=== PATIENT | female | born 2000 | race Caucasian/White ===

== ENCOUNTER 2022-05-16 05:57 | Emergency (ER) | payer OTHER, SELFPAY ==
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
[2022-05-16 06:12] VITALS: BP 132/94; BP 133/76; PULSE 107; PULSE 127; RESP 16; TEMP 37.2; O2SAT 98; O2SAT 99; BMI 28.3
[2022-05-16 07:30] VITALS: BP 118/62; PULSE 112; RESP 18; TEMP 37.1; O2SAT 97
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
[2022-05-16] MEDS: Acetaminophen 325 MG TABLET 975 MG PO (08:25)
[2022-05-16] MEDS: Ketorolac Tromethamine 15 MG/ML VIAL IM (08:25)
[2022-05-16 11:29] VITALS: BP 111/66; PULSE 98; RESP 16; O2SAT 99
== END 2022-05-16 11:33 | disposition home or self-care (01) ==
PROVIDERS: Emergency Provider Student in an Organized Health Care Education/Training Program
DX: S92.154A Nondisplaced avulsion fracture (chip fracture) of right talus, initial encounter for closed fracture (principal); S93.401A Sprain of unspecified ligament of right ankle, initial encounter; V47.5XXA Car driver injured in collision with fixed or stationary object in traffic accident, initial encounter; Y93.89 Activity, other specified; Y92.411 Interstate highway as the place of occurrence of the external cause; Y99.9 Unspecified external cause status
CPT/HCPCS: 73590; 73600; 73620; 96372; 99284; J1885

== ENCOUNTER 2022-05-28 07:54 | Outpatient (REF) | payer OTHER, SELFPAY ==
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
== END 2022-05-28 07:55 | disposition home or self-care (01) ==
LOC: HO.HOSX 07:54
PROVIDERS: Visit Provider Physician Assistant
DX: M25.571 Pain in right ankle and joints of right foot (principal)
CPT/HCPCS: 73610

== ENCOUNTER 2022-06-26 12:45 | Outpatient (REF) | payer OTHER, SELFPAY ==
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
== END 2022-06-26 12:46 | disposition home or self-care (01) ==
LOC: HO.HOSX 12:45
PROVIDERS: Visit Provider Physician Assistant
DX: S82.51XD Displaced fracture of medial malleolus of right tibia, subsequent encounter for closed fracture with routine healing (principal)
CPT/HCPCS: 73610; 99212

== ENCOUNTER 2022-08-07 | Outpatient (REF) | payer OTHER, SELFPAY ==
--- NOTE | ~2022-08-07 | XR_ITS ---
EXAMINATION: XR ANKLE, RIGHT CLINICAL INFORMATION: Ankle pain COMPARISON: 06/26/2022 TECHNIQUE: AP, lateral, and mortise views of the right ankle. XR/XR ankle RT min 3V FINDINGS/IMPRESSION: Again seen is nonspecific cortical disruption of the medial aspect of the talus. This may reflect posttraumatic injury, although an intraosseous lesion cannot be excluded. Recommend further evaluation with MRI.
== END 2022-08-07 00:01 | disposition home or self-care (01) ==
LOC: HO.HOSX
PROVIDERS: Visit Provider Physician Assistant
DX: S82.51XD Displaced fracture of medial malleolus of right tibia, subsequent encounter for closed fracture with routine healing (principal); V89.2XXD Person injured in unspecified motor-vehicle accident, traffic, subsequent encounter
CPT/HCPCS: 73610; 99212

== ENCOUNTER 2022-08-10 15:00 | Outpatient (RCR) | payer OTHER, SELFPAY ==
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
--- NOTE | 2022-08-25 13:53 | MHC.PT.DC ---
[facility] [place] Office [place] [facility] [place] Office [address] Madelin Mock [address] [phone] F: [phone] F: [phone] F: [phone] F: [phone] Physical Therapy Discharge Report Diagnosis: Displaced fracture of medial malleolus of right tibia Date of Surgery: N/A Date of Evaluation: 07/20/22 Date of Discharge: 08/25/22 Treatments to Date: 5 Cancellations to Date: 1 No Shows to Date: 3 Discharge Status: Visit Non-compliance Discharge Summary: Pt was seen for PT from 07/20/22-08/10/22. Pt last attended appointment was 08/10/22. She has had 3 no-show appointments since SOC, including 2 no-shows for her last 2 scheduled appointments. Pt is being D/C from skilled PT per [facility] attendance policy and visit non-compliance. Pt current level of function unknown at this time. Electronically signed by: Myrna Oliver, PT, DPT Please sign and return to therapist. Thank you for your referral.
== END 2022-08-25 13:53 | disposition home or self-care (01) ==
LOC: HO.PT 15:00
PROVIDERS: Visit Provider Physician Assistant
DX: S82.51XD Displaced fracture of medial malleolus of right tibia, subsequent encounter for closed fracture with routine healing (principal)
CPT/HCPCS: 97110; 97112; 97140; 97162

== ENCOUNTER 2023-10-20 12:22 | Outpatient (AMB) | payer OTHER, SELFPAY ==
--- NOTE | 2023-10-20 12:56 | A.OFFVIS_ITS ---
Intake Vital Signs 10/20/23 13:04 Height 5 ft 3 in Weight 165 lb 5.547 oz BMI 29.3 BP 110/57 L Blood Pressure Location Rt brachial Position Sitting Pulse 85 Intake Visit Reasons: Dyspepsia Intake Note: Patient presents to in office visit today as a new patient for dyspepsia. CC:Patient c/o abdominal bloating, abdominal discomfort, bowel urgency after eating from fast food restaurant, constipation, and occasional loose stools. Ons et of symptoms about a year ago per PT. Allergies No Known Allergies [No Known Allergies*] Allergy (Verified 10/20/23 13:07) HPI Dyspepsia HPI Details 23-year-old female here for initial eval uation of dyspepsia. She is referred by Tony Robles MD the of [facility]. PMX Asthma Acne Allergic rhinitis Eczema * SURGICAL HISTORY Tubal ligation * ALLERGIES: NKDA * [employer] LABS: none in our system TODAY'S VISIT Onset last year she started having a great deal of bloating. She is always feeling CIC, but garlic and fatty foods generally will move her bowels. The bloating is of the sudden onset, but she has always had CIC. The bloating is mostly midline in the upper abd adn she is having a lot of acid feeling in my stomach. This is worse with speghetti sauce, butter as a main ingredient. She can not ID any medication changes, health problems or diet changes preceding this. THere has been no testing done to address this yet. Her father also sees me for a lot of stomach problems. She has used Miralax w/o good effect. She has used colon cleanse pills from [employer] in the past with good effect. We looked up this medicine and it contains largely senna with some cascara but it cost her 30 dollars a month so we probably respond well to senna as a monotherapy. We can start here and then titrate to affect her side effect. There is no known family history of gallbladder disease but I think getting an ultrasound to check this out would be prudent particularly given her reports of trouble with fatty foods, I also think an H pylori breath test would be in order. Since we do not have any general blood work I am going to get a CBC and Chem panel. She is also reporting that she has been gaining weight that she can not seem to lose, having some dry skin and losing some hair so thyroid studies along with her constipation would also be a good idea. THERE IS A STRONG FAMILY HISTORY of thyroid disease in her mother and her sister. I am going to get some basic lab work including a thyroid since she is complaining of hair falling out and skin dryness, and an ultrasound of the abdomen to see if there is any reason to suspect gallbladder disease. Will also get an H pylori breath test see if we should consider an EGD depending on her response to starting senna etc.. Return office visit in 4-6 weeks. 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 Review of Systems Const Reports fatigue, Denies fever(s), Denies night sweats, Denies poor appetite and Denies weight loss ENT Reports Normal hearing present, Denies dental pain, Denies dysphagia, Denies hearing loss, Denies mouth pain, Denies odynophagia, Denies throat swelling, Denies tongue swelling and Reports other (Dentition adequate) Card Reports no additional complaints Resp Reports no additional complaints GI Denies abdominal pain, Denies melena, Reports bloating, Denies hematochezia, Reports constipation, Denies GI cramping, Denies dysphagia, Denies excessive flatus, Denies early satiety, Reports dyspepsia, Reports heartburn, Denies diarrhea, Denies nausea, Denies odynophagia, Denies vomiting and Denies hematemesis Skin/Breast Reports dry skin, Reports alopecia, Denies pruritus, Denies lesions, Denies rash and Denies jaundice Neuro Reports Normal hearing present and Denies Abnormal speech present Endo Reports fatigue Aller/Immun Denies throat swelling and Denies tongue swelling Physical Exam Vital Signs: Last Vital Signs Pulse 85 10/20/23 13:04 BP 110/57 L 10/20/23 13:04 BMI result Body Mass Index 29.3 Const General: cooperative, no acute distress, well developed and well groomed Nutritional Appearance: well nourished and overweight Orientation/consciousness: oriented to person, oriented to place and oriented to time Limitations: No language barrier HEENT Head: Yes normocephalic and Yes atraumatic Eyes General: appearance normal, both eyes and all related structures Pupils: Equal, round and reactive pupils present Neck Neck: Yes no lymphadenopathy Thyroid: diffusely enlarged (? Mild goiter versus short neck) Resp Effort & Inspection: normal respiratory effort and able to speak in complete sentences Auscultation: clear to auscultation bilaterally Cardio Rate: regular rate Rhythm: regular rhythm Heart sounds: Normal, physiologic split S2 sound present Peripheral pulses: radial pulses present and posterior tibial pulses present GI Inspection: No distended, Yes Abdominal panniculus present, Yes obesity and Yes striae Palpation (GI): Soft to palpation, Tenderness to palpation present (GI) in the epigastrum, in the LUQ and Valdez's sign positive; with no rebound tenderness, Guarding due to palpation present (GI), not rigid and No hepatosplenomegaly present Percussion: Yes normal to percussion Auscultation: normal bowel sounds Rectal Exam - Female: deferred Skin General skin exam: no rashes or lesions noted, turgor normal, skin not dry, no jaundice, No spider nevi and no striae Rashes: no rashes Nails: normal Neuro General: oriented to person, oriented to place and oriented to time Cranial nerves: Yes Equal, round and reactive pupils present and Yes Normal hearing present Speech: No Abnormal speech present Extrem General: Yes normal to inspection, No clubbing, No cyanosis and No edema Psych Appearance: grossly normal and well kempt Mental Status: mental status grossly normal Speech and movement: Normal speech and movement present Affect: normal affect Attitude: cooperative Thought process: Normal thought process present and not confabulating Thought content: Normal thought content present Insight: Limited insight present (Psych) Judgement: Limited judgement present (Psych) Assessment & Plan Assessment & Plan (1) Constipation: Code(s): K59.00 - Constipation, unspecified (2) Weight gain: Code(s): R63.5 - Abnormal weight gain (3) Hair loss: Code(s): L65.9 - Nonscarring hair loss, unspecified (4) Upper abdominal pain: Comment: really more bloating Code(s): R10.10 - Upper abdominal pain, unspecified Plan Onset last year she started having a great deal of bloating. She is always feeling CIC, but garlic and fatty foods generally will move her bowels. The bloating is of the sudden onset, but she has always had CIC. The bloating is mostly midline in the upper abd adn she is having a lot of acid feeling in my stomach. This is worse with speghetti sauce, butter as a main ingredient. She can not ID any medication changes, health problems or diet changes preceding this. THere has been no testing done to address this yet. Her father also sees me for a lot of stomach problems. She has used Miralax w/o good effect. She has used colon cleanse pills from [employer] in the past with good effect. We looked up this medicine and it contains largely senna with some cascara but it cost her 30 dollars a month so we probably respond well to senna as a monotherapy. We can start here and then titrate to affect her side effect. There is no known family history of gallbladder disease but I think getting an ultrasound to check this out would be prudent particularly given her reports of trouble with fatty foods, I also think an H pylori breath test would be in order. Since we do not have any general blood work I am going to get a CBC and Chem panel. She is also reporting that she has been gaining weight that she can not seem to lose, having some dry skin and losing some hair so thyroid studies along with her constipation would also be a good idea. THERE IS A STRONG FAMILY HISTORY of thyroid disease in her mother and her sister. I am going to get some basic lab work including a thyroid since she is complaining of hair falling out and skin dryness, and an ultrasound of the abdomen to see if there is any reason to suspect gallbladder disease. Will also get an H pylori breath test see if we should consider an EGD depending on her response to starting senna etc.. Return office visit in 4-6 weeks. Orders: Orders Comprehensive Met. Panel 10/21/23 K59.00 - Constipation, unspecified, R63.5 - Abnormal weight gain, L65.9 - Nonscarring hair loss, unspecified Complete Blood Count Auto Diff 10/21/23 K59.00 - Constipation, unspecified, R63.5 - Abnormal weight gain, L65.9 - Nonscarring hair loss, unspecified H Pylori Breath Test 10/21/23 K59.00 - Constipation, unspecified, R63.5 - Abnormal weight gain, L65.9 - Nonscarring hair loss, unspecified TSH reflex Free T4 10/21/23 K59.00 - Constipation, unspecified, R63.5 - Abnormal weight gain, L65.9 - Nonscarring hair loss, unspecified US abdomen complete 10/20/23 R10.10 - Upper abdominal pain, unspecified Medications: New sennosides (Senna Laxative) 17.2 mg (2 x 8.6 mg) PO BEDTIME 60 tabs 6RF K59.00 - Constipation, unspecified docusate sodium (Colace) 100 mg PO .DAILY WITH FOOD 60 caps 6RF 30 days K59.00 - Constipation, unspecified Coding Level of Care Code New Pt Level 3 (91872) Diagnoses Constipation K59.00 Weight gain R63.5 Hair loss L65.9 Upper abdominal pain R10.10
[2023-10-20 13:04] VITALS: BP 110/57; PULSE 85; BMI 29.3
== END 2023-10-20 14:19 | disposition home or self-care (01) ==
PROVIDERS: Visit Provider Nurse Practitioner
DX: K59.00 Constipation, unspecified (principal); R63.5 Abnormal weight gain; L65.9 Nonscarring hair loss, unspecified; R10.10 Upper abdominal pain, unspecified
CPT/HCPCS: 99203

== ENCOUNTER 2023-10-20 12:22 | Outpatient (REF) | payer OTHER, SELFPAY ==
[2023-10-21 16:53] LABS: H Pylori Breath Test Positive (Negative)
== END 2023-10-20 12:23 | disposition home or self-care (01) ==
LOC: HO.LNP 12:22
PROVIDERS: Visit Provider Nurse Practitioner
DX: K59.00 Constipation, unspecified (principal); R63.5 Abnormal weight gain; R10.13 Epigastric pain; L65.9 Nonscarring hair loss, unspecified
CPT/HCPCS: 83013; 99202

== ENCOUNTER 2023-10-21 09:09 | Outpatient (REF) | payer OTHER, SELFPAY | END 2023-10-21 09:10 | disposition home or self-care (01) | LOC: HO.LAB 09:09 | PROVIDERS: Visit Provider Nurse Practitioner | DX: K59.00 Constipation, unspecified (principal); R63.5 Abnormal weight gain; L65.9 Nonscarring hair loss, unspecified | CPT/HCPCS: 36415; 80053; 84443; 85025 ==

== ENCOUNTER 2023-12-07 09:43 | Outpatient (REF) | payer OTHER, SELFPAY ==
[2023-12-08 12:11] LABS: H Pylori Breath Test Positive (Negative)
== END 2023-12-07 09:44 | disposition home or self-care (01) ==
LOC: HO.LNP 09:43
PROVIDERS: Visit Provider Nurse Practitioner
DX: Z11.0 Encounter for screening for intestinal infectious diseases (principal)
CPT/HCPCS: 83013

== ENCOUNTER 2023-12-30 09:52 | Outpatient (AMB) | payer OTHER, SELFPAY ==
--- NOTE | 2023-12-30 10:02 | A.OFFVIS_ITS ---
Intake Vital Signs 12/30/23 10:12 Height 5 ft 3 in Weight 163 lb 2.273 oz BMI 28.9 BP 104/58 L Blood Pressure Location Lt brachial Position Sitting Pulse 92 Intake Visit Reasons: Follow up labs Intake Note: Patient presents in office today in follow up labs. CC: Patient states she continues feeling the same, she still having abdominal bloating, abdominal discomfort, bowel urgency after eating from fast food restaurant. Allergies amoxicillin Allergy (Mild, Verified 12/30/23 10:17) Rash HPI Follow up labs HPI Details Assessment & Plan (1) Constipation: Code(s): K59.00 - Constipation, unspecified (2) Weight gain: Code(s): R63.5 - Abnormal weight gain (3) Hair loss: Code(s): L65.9 - Nonscarring hair loss, unspecified (4) Upper abdominal pain: Comment: really more bloating Code(s): R10.10 - Upper abdominal pain, unspecified Plan Onset last year she started having a great deal of bloating. She is always feeling CIC, but garlic and fatty foods generally will move her bowels. The bloating is of the sudden onset, but she has always had CIC. The bloating is mostly midline in the upper abd adn she is having a lot of acid feeling in my stomach. This is worse with spaghetti sauce, butter as a main ingredient. She can not ID any medication changes, health problems or diet changes preceding this. There has been no testing done to address this yet. Her father also sees me for a lot of stomach problems. She has used Miralax w/o good effect. She has used colon cleanse pills from [employer] in the past with good effect. We looked up this medicine and it contains largely senna with some cascara but it cost her 30 dollars a month so we probably respond well to senna as a monotherapy. We can start here and then titrate to affect her side effect. There is no known family history of gallbladder disease but I think getting an ultrasound to check this out would be prudent particularly given her reports of trouble with fatty foods, I also think an H pylori breath test would be in order. Since we do not have any general blood work I am going to get a CBC and Chem panel. She is also reporting that she has been gaining weight that she can not seem to lose, having some dry skin and losing some hair so thyroid studies along with her constipation would also be a good idea. THERE IS A STRONG FAMILY HISTORY of thyroid disease in her mother and her sister. I am going to get some basic lab work including a thyroid since she is complaining of hair falling out and skin dryness, and an ultrasound of the abdomen to see if there is any reason to suspect gallbladder disease. Will also get an H pylori breath test see if we should consider an EGD depending on her response to starting senna etc.. Return office visit in 4-6 weeks. Orders: Orders Comprehensive Met. Panel 10/21/23 K59.00 - Constipat ion, unspecified, R63.5 - Abnormal w eight gain, L65.9 - Nonscarring hair loss, unspecified Complete Blood Cou nt Auto Diff 10/21/23 K59.00 - Constipat ion, unspecified, R63.5 - Abnormal w eight gain, L65.9 - Nonscarring hair loss, unspecified H Pylori Breath Te st 10/21/23 K59.00 - Constipat ion, unspecified, R63.5 - Abnormal w eight gain, L65.9 - Nonscarring hair loss, unspecified TSH reflex Free T4 10/21/23 K59.00 - Constipat ion, unspecified, R63.5 - Abnormal w eight gain, L65.9 - Nonscarring hair loss, unspecified US abdomen complet e 10/20/23 R10.10 - Upper abd ominal pain, unspe cified Medications: New sennosides (Senna Laxative) 17.2 mg (2 x 8.6 m g) PO BEDTIME 60 t abs 6RF K59.00 - Constipat ion, unspecified docusate sodium (C olace) 100 mg PO .DAILY W ITH FOOD 60 caps 6 RF 30 days K59.00 - Constipat ion, unspecified LABS: Laboratory Tests 10/21/23 12/07/23 09:20 10:20 WBC 7.3 Hgb 12.0 Hct 39.7 MCV 75.8 L MCH 22.9 L Plt Count 212 Estimated GFR > 60 Total Bilirubin 0.3 AST 12 ALT 10 Alkaline Phosphata se 78 TSH 0.40 H. pylori Breath T est Positive ULTRASOUND OF THE ABDOMEN CORRESPONDENCE On 10/22/23 @ 13:20 Megan Parada Wrote To Gastro Nurses Megan Parada completed item. On 10/22/23 @ 13:20 Megan Parada Wrote To Gastro Nurses telephone call placed to patient to inform of positive H Pylori infection. patient informed this could be the cause of her upper abdominal symptoms. patient advised that it is important she complete full course of treatment as bacteria can be hard to eradicate. patient informed that Amoxicillin and Levaquin were sent, as well as Omeprazole for her to take BID. patient advised that she needs to purchase OTC probiotic supplement to prevent diarrhea and corona. patient scheduled for f/u in 6 weeks to re test. Megan Parada removed from item. On 10/22/23 @ 12:11 Karen Truong Wrote To Megan Parada (2) Please call the patient advised her she is an H pylori infection. This probably causing lot of her upper abdomen symptoms. Educate her about H pylori the i mportance of completing the regimen since there are lot of resistant organisms out there. I am treating her with amoxicillin Levaquin so she only needs to buy an [id number] probiotic supplement while she is on the antibiotics to prevent diarrhea and Corona infections. We do not need to avoid alcohol with this regimen. Please reschedule her out to 6 weeks from today or tomorrow so that will be able to appropriately retest her for a eradication. TODAY'S VISIT She had a rash from the amoxicillin, presented to the ER and it was stopped, will change to doxy/flagyl. Unfortunately her symptoms are no better. This is likely because the H pylori repeated breath test was still positive. She did better with the doxy/Flagyl regimen when she took the amoxicillin she broke out in hives from head to toe and had a great deal of itching. Obviously this limits us since we can not use anything involving the amoxicillin regimen unless we send her to an automatic casting machine operator and have her desensitized. For now we are going to try a course with rifabutin and Flagyl. She is advised to take a probiotic and I am going to also try prescribing Gas-X but she may need to buy this [id number]. This is to try to address the bloating although I suspect a large amount of this is due the H pylori. She received the senna and this is moving her bowels just as well as her [employer] purchase that was senna and cascara did. Return office visit in 7 weeks around February 09 she will be scheduled for an H pylori breath test and she is aware to stop the omeprazole prior to the test. 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 Review of Systems Const Denies fatigue, Denies fever(s), Denies night sweats, Denies poor appetite and Denies weight loss ENT Reports Normal hearing present, Denies dental pain, Denies dysphagia, Denies hearing loss, Denies mouth pain, Denies odynophagia, Denies throat swelling, D enies tongue swelling and Reports other (Dentition adequate) Card Reports no additional complaints Resp Reports no additional complaints GI Details: Reports abdominal pain, Denies melena, Reports bloating, Denies hematochezia, Denies constipation, Denies GI cramping, Denies dysphagia, Denies excessive flatus, Denies early satiety, Reports dyspepsia, Reports heartburn, Denies diarrhea, Denies nausea, Denies odynophagia, Denies vomiting and Denies hematemesis Skin/Breast Denies pruritus, Denies lesions, Denies rash and Denies jaundice Neuro Reports Normal hearing present and Denies Abnormal speech present Endo Denies fatigue Aller/Immun Denies throat swelling and Denies tongue swelling Physical Exam Vital Signs: Last Vital Signs Pulse 92 12/30/23 10:12 BP 104/58 L 12/30/23 10:12 BMI result Body Mass Index 28.9 Const General: cooperative, no acute distress, well developed and well groomed Nutritional Appearance: average body habitus and well nourished Orientation/consciousness: oriented to person, oriented to place and oriented to time Limitations: No language barrier HEENT Head: Yes normocephalic and Yes atraumatic Eyes General: appearance normal, both eyes and all related structures Pupils: Equal, round and reactive pupils present Neck Neck: Yes normal visual inspection and Yes no lymphadenopathy Thyroid: Thyroid normal Resp Effort & Inspection: normal respiratory effort and able to speak in complete sentences Auscultation: clear to auscultation bilaterally Cardio Rate: regular rate Rhythm: regular rhythm Heart sounds: Normal, physiologic split S2 sound present Peripheral pulses: radial pulses present and posterior tibial pulses present GI Inspection: No distended and No Abdominal panniculus present Palpation (GI): Soft to palpation, nontender, no guarding, not rigid and No hepatosplenomegaly present Percussion: Yes normal to percussion Auscultation: normal bowel sounds Rectal Exam - Female: deferred Skin General skin exam: no rashes or lesions noted, turgor normal, skin not dry, no jaundice, No spider nevi and no striae Rashes: no rashes Nails: normal Neuro General: oriented to person, oriented to place and oriented to time Cranial nerves: Yes Equal, round and reactive pupils present and Yes Normal hearing present Speech: No Abnormal speech present Extrem General: Yes normal to inspection, No clubbing, No cyanosis and No edema Psych Appearance: grossly normal and well kempt Mental Status: mental status grossly normal Speech and movement: Normal speech and movement present Affect: normal affect Attitude: cooperative Thought process: Normal thought process present and not confabulating Thought content: Normal thought content present Insight: Fair insight present (Psych) Judgement: Fair judgement present (Psych) Results Reviewed Results Reviewed: Laboratory Tests 10/21/23 12/07/23 09:20 10:20 WBC 7.3 Hgb 12.0 Hct 39.7 MCV 75.8 L MCH 22.9 L Plt Count 212 Estimated GFR > 60 Total Bilirubin 0.3 AST 12 ALT 10 Alkaline Phosphatase 78 TSH 0.40 H. pylori Breath Test Positive Assessment & Plan Assessment & Plan (1) H. pylori infection: Code(s): A04.8 - Other specified bacterial intestinal infections (2) Upper abdominal pain: Comment: really more bloating Code(s): R10.10 - Upper abdominal pain, unspecified Plan She had a rash from the amoxicillin, presented to the ER and it was stopped, will change to doxy/flagyl. Unfortunately her symptoms are no better. This is likely because the H pylori repeated breath test was still positive. She did better with the doxy/Flagyl regimen when she took the amoxicillin she broke out in hives from head to toe and had a great deal of itching. Obviously this limits us since we can not use anything involving the amoxicillin regimen unless we send her to an automatic casting machine operator and have her desensitized. For now we are going to try a course with rifabutin and Flagyl. She is advised to take a probiotic and I am going to also try prescribing Gas-X but she may need to buy this [id number]. This is to try to address the bloating although I suspect a large amount of this is due the H pylori. She received the [employer] and this is moving her bowels just as well as her [employer] purchase that was [employer] and [employer] did. Return office visit in 7 weeks around February 09 she will be scheduled for an H pylori breath test and she is aware to stop the omeprazole prior to the test. Orders: Orders H Pylori Breath Test 02/10/24 Medications: New metronidazole 1,000 mg (2 x 500 mg) PO BID 14 days 56 tabs 0RF rifabutin 300 mg (2 x 150 mg) PO DAILY 14 days 28 caps 0RF A04.8 - Other specified bacterial intestinal infections, R10.10 - Upper abdominal pain, unspecified simethicone after meals 180 mg PO QID 30 days 120 caps 3RF Changed From omeprazole 20 mg PO BID 14 days 28 caps 0RF A04.8 - Other specified bacterial intestinal infections To omeprazole 20 mg PO BID 28 days 56 caps 0RF A04.8 - Other specified bacterial intestinal infections Coding Level of Care Code Est Pt Level 3 (25863) Diagnoses H. pylori infection A04.8 Upper abdominal pain R10.10
[2023-12-30 10:12] VITALS: BP 104/58; PULSE 92; BMI 28.9
== END 2023-12-30 10:39 | disposition home or self-care (01) ==
PROVIDERS: Visit Provider Nurse Practitioner
DX: A04.8 Other specified bacterial intestinal infections (principal); R10.10 Upper abdominal pain, unspecified
CPT/HCPCS: 99213

== ENCOUNTER → 2023-12-30 09:52 | Outpatient (BNVA) | payer OTHER, SELFPAY | PROVIDERS: Visit Provider Nurse Practitioner | DX: A04.8 Other specified bacterial intestinal infections (principal); R14.0 Abdominal distension (gaseous) | CPT/HCPCS: 99212 ==

== ENCOUNTER 2024-03-24 08:44 | Outpatient (REF) | payer OTHER, SELFPAY ==
[2024-03-30 15:10] LABS: H Pylori Breath Test Positive (Negative)
== END 2024-03-24 08:45 | disposition home or self-care (01) ==
LOC: HO.LNP 08:44
PROVIDERS: Visit Provider Nurse Practitioner
DX: A04.8 Other specified bacterial intestinal infections (principal); R19.5 Other fecal abnormalities; R10.10 Upper abdominal pain, unspecified
CPT/HCPCS: 83013

== ENCOUNTER 2024-03-24 09:57 | Outpatient (AMB) | payer OTHER, SELFPAY ==
[2024-03-24 10:13] VITALS: BP 123/73; PULSE 90; BMI 28.6
--- NOTE | 2024-03-24 10:13 | MHC.OFFVIS ---
Vital Signs 03/24/24 10:13 Height 5 ft 3 in Weight 161 lb 6.054 oz BMI 28.6 BP 123/73 Blood Pressure Location Lt brachial Position Sitting Pulse 90 Intake Visit Reasons: follow up h pylori Intake Note: Patient here to f/u abdominal pain. Reports no changes. Still bad after eating. Patient c/o: Completed H pilori txt. Dental Manager Required: No Accompanied by: Self / Same As Patient Allergies amoxicillin Allergy (Mild, Verified 03/24/24 10:18) Rash HPI HPI follow up h pylori: Details: Assessment & Plan (1) H. pylori infection: Code(s): A04.8 - Other specified bacterial intestinal infections (2) Upper abdominal pain: Comment: really more bloating Code(s): R10.10 - Upper abdominal pain, unspecified Plan She had a rash from the amoxicillin, presented to the ER and it was stopped, will change to doxy/flagyl. Unfortunately her symptoms are no better. This is likely because the H pylori repeated breath test was still positive. She did better with the doxy/Flagyl regimen when she took the amoxicillin she broke out in hives from head to toe and had a great deal of itching. Obviously this limits us since we can not use anything involving the amoxicillin regimen unless we send her to an tool turret lathe set up operator and have her desensitized. For now we are going to try a course with rifabutin and Flagyl. She is advised to take a probiotic and I am going to also try prescribing Gas-X but she may need to buy this [id number]. This is to try to address the bloating although I suspect a large amount of this is due the H pylori. She received the senna and this is moving her bowels just as well as her [employer] purchase that was senna and cascara did. Return office visit in 7 weeks around February 09 she will be scheduled for an H pylori breath test and she is aware to stop the omeprazole prior to the test. Orders: Orders H Pylori Breath Test 02/10/24 Medications: New metronidazole 1,000 mg (2 x 500 mg) PO BID 14 days 56 tabs 0RF rifabutin 300 mg (2 x 150 mg) PO DAILY 14 days 28 caps 0RF A04.8 - Other specified bacterial intestinal infections, R10.10 - Upper abdominal pain, unspecified simethicone after meals 180 mg PO QID 30 days 120 caps 3RF Changed From omeprazole 20 mg PO BID 14 days 28 caps 0RF A04.8 - Other specified bacterial intestinal infections To omeprazole 20 mg PO BID 28 days 56 caps 0RF A04.8 - Other specified bacterial intestinal infections LABS: Laboratory Tests 12/07/23 10:20 H. pylori Breath Test Positive ULTRASOUND OF THE ABDOMEN CORRESPONDENCE On 02/14/24 @ 09:25 Megan Parada Wrote To Dionne I received approval for the generic of Mycobutin and it was scanned into chart. I spoke w/ [facility] as this is what they were waiting for, script was resent as well as the Metronidazole since patient is already coming in to pick it up. patient is aware and will come get medication tomorrow. I advised her to not start Flagyl until she is sure she has the Rifabutin in hand. patient verbalized understanding. just sending as fyi follow up rescheduled to 03/24/24 at 10am On 02/11/24 @ 09:56 Megan Parada Wrote To Dionne (2) Unfortunately it is the brand name that requires no PA and is currently on backorder with no date of restock. I submitted PA for generic. On 02/10/24 @ 16:45 Wong Amin Wrote To Dionne (2) I called the patient and told her to stop taking Metronidazole since she did not have the Rifabutin due to supply issues at [facility]. [facility] said they will try to order rifabutin for tomorrow. New scripts sent to [facility]. I advised for the patient to call tomorrow to check if they are available. Once available, patient will restart course of flagyl, rifabutin, and omeprazole. Appointments on 02/16 and 03/03 were cancelled. New follow-up appointment scheduled with January on 03/21 (assuming patient can get the scripts tomorrow). Patient will also need the H Pylori breath test rescheduled. Patient agreed with the plan and was advised to call the office with any questions. On 02/10/24 @ 14:32 DionneKaren Wrote To Clinton Jackson Karen Truong removed from item. TODAY'S VISIT She had a rash from the amoxicillin, presented to the ER and it was stopped, will change to doxy/flagyl. Sx not changed, but now she feels she is not processing milk, she gets more bloating and some looser stools. Discuss lactose intolerance and strategies to manage this such as Lactaid/yogurt. Will get RAST. Get repeat HP breath test. We will decide the next course of treatment depending on the results. 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 Review of Systems Const Denies fatigue, Denies fever(s), Denies night sweats, Denies poor appetite and Denies weight loss ENT Reports Normal hearing present, Denies dental pain, Denies dysphagia, Denies hearing loss, Denies mouth pain, Denies odynophagia, Denies throat swelling, Denies tongue swelling and Reports other (Dentition adequate) Card Reports no additional complaints Resp Reports no additional complaints GI Details: Reports abdominal pain, Denies melena, Reports bloating, Denies hematochezia, Denies constipation, Reports GI cramping, Denies dysphagia, Denies excessive flatus, Denies early satiety, Reports heartburn, Denies diarrhea, Denies nausea, Denies odynophagia, Denies vomiting and Denies hematemesis Skin/Breast Denies pruritus, Denies lesions, Denies rash and Denies jaundice Neuro Reports Normal hearing present and Denies Abnormal speech present Endo Denies fatigue Aller/Immun Denies throat swelling and Denies tongue swelling Physical Exam Vital Signs: Last Vital Signs Pulse 90 03/24/24 10:13 BP 123/73 03/24/24 10:13 BMI result Body Mass Index 28.6 Const General: cooperative, no acute distress, well developed and well groomed Nutritional Appearance: average body habitus and well nourished Orientation/consciousness: oriented to person, oriented to place and oriented to time Limitations: No language barrier HEENT Head: Yes normocephalic and Yes atraumatic Eyes General: appearance normal, both eyes and all related structures Pupils: Equal, round and reactive pupils present Neck Neck: Yes normal visual inspection and Yes no lymphadenopathy Thyroid: Thyroid normal Resp Effort & Inspection: normal respiratory effort and able to speak in complete sentences Auscultation: clear to auscultation bilaterally Cardio Rate: regular rate Rhythm: regular rhythm Heart sounds: Normal, physiologic split S2 sound present Peripheral pulses: radial pulses present and posterior tibial pulses present GI Inspection: No distended and No Abdominal panniculus present Palpation (GI): Soft to palpation, nontender, no guarding, not rigid and No hepatosplenomegaly present Percussion: Yes normal to percussion Auscultation: normal bowel sounds Rectal Exam - Female: deferred Skin General skin exam: no rashes or lesions noted, turgor normal, skin not dry, no jaundice, No spider nevi and no striae Rashes: no rashes Nails: normal Neuro General: oriented to person, oriented to place and oriented to time Cranial nerves: Yes Equal, round and reactive pupils present and Yes Normal hearing present Speech: No Abnormal speech present Extrem General: Yes normal to inspection, No clubbing, No cyanosis and No edema Psych Appearance: grossly normal and well kempt Mental Status: mental status grossly normal Speech and movement: Normal speech and movement present Affect: normal affect Attitude: cooperative Thought process: Normal thought process present and not confabulating Thought content: Normal thought content present Insight: Limited insight present (Psych) Judgement: Limited judgement present (Psych) Assessment & Plan Assessment & Plan (1) H. pylori infection: Code(s): A04.8 - Other specified bacterial intestinal infections Category: Medical (2) Upper abdominal pain: Comment: really more bloating Code(s): R10.10 - Upper abdominal pain, unspecified Category: Medical (3) Loose stools: Code(s): R19.5 - Other fecal abnormalities Category: Medical Plan She had a rash from the amoxicillin, presented to the ER and it was stopped, will change to doxy/flagyl. Sx not changed, but now she feels she is not processing milk, she gets more bloating and some looser stools. Discuss lactose intolerance and strategies to manage this such as Lactaid/yogurt. Will get RAST. Get repeat HP breath test. We will decide the next course of treatment depending on the results. Return office visit in 6 weeks Orders: Orders H Pylori Breath Test Today A04.8 - Other specified bacterial intestinal infections, R10.10 - Upper abdominal pain, unspecified, R19.5 - Other fecal abnormalities Rast Allergen Today R19.5 - Other fecal abnormalities Medications: Refilled omeprazole 20 mg PO BID 56 caps 3RF 28 days A04.8 - Other specified bacterial intestinal infections Coding Level of Care Code Est Pt Level 3 (75461) Diagnoses H. pylori infection A04.8 Upper abdominal pain R10.10 Loose stools R19.5
== END 2024-03-24 11:04 | disposition home or self-care (01) ==
PROVIDERS: Visit Provider Nurse Practitioner
DX: A04.8 Other specified bacterial intestinal infections (principal); R10.10 Upper abdominal pain, unspecified; R19.5 Other fecal abnormalities
CPT/HCPCS: 99213

== ENCOUNTER 2024-03-24 09:57 | Outpatient (REF) | payer OTHER, SELFPAY | END 2024-03-24 09:58 | disposition home or self-care (01) | LOC: HO.LAB 09:57 | PROVIDERS: Visit Provider Nurse Practitioner | DX: R19.5 Other fecal abnormalities (principal); A04.8 Other specified bacterial intestinal infections; R10.10 Upper abdominal pain, unspecified | CPT/HCPCS: 36415; 86003; 99212 ==

== ENCOUNTER 2024-05-05 11:27 | Outpatient (AMB) | payer OTHER, SELFPAY ==
[2024-05-05 11:33] VITALS: BP 111/69; PULSE 84; BMI 28.9
--- NOTE | 2024-05-05 11:33 | MHC.OFFVIS ---
Vital Signs 05/05/24 11:33 Height 5 ft 3 in Weight 163 lb 2.273 oz BMI 28.9 BP 111/69 Blood Pressure Location Lt brachial Position Sitting Pulse 84 Intake Visit Reasons: 6 week follow up Intake Note: Alejandro returns to in office visit today in 6 weeks follow up of RAST allergy test. CC: Patient continues to have abdominal pain after eating. Denies other GI symptoms today. Cobol Developer Required: No Allergies amoxicillin Allergy (Mild, Verified 05/05/24 11:37) Rash HPI HPI 6 week follow up: Details: Assessment & Plan (1) H. pylori infection: Code(s): A04.8 - Other specified bacterial intestinal infections (2) Upper abdominal pain: Comment: really more bloating Code(s): R10.10 - Upper abdominal pain, unspecified Plan She had a rash from the amoxicillin, presented to the ER and it was stopped, will change to doxy/flagyl. Unfortunately her symptoms are no better. This is likely because the H pylori repeated breath test was still positive. She did better with the doxy/Flagyl regimen when she took the amoxicillin she broke out in hives from head to toe and had a great deal of itching. Obviously this limits us since we can not use anything involving the amoxicillin regimen unless we send her to an bench assembler operator and have her desensitized. For now we are going to try a course with rifabutin and Flagyl. She is advised to take a probiotic and I am going to also try prescribing Gas-X but she may need to buy this [id number]. This is to try to address the bloating although I suspect a large amount of this is due the H pylori. She received the senna and this is moving her bowels just as well as her [employer] purchase that was senna and cascara did. Return office visit in 7 weeks around February 09 she will be scheduled for an H pylori breath test and she is aware to stop the omeprazole prior to the test. Orders: Orders H Pylori Breath Test 02/10/24 Medications: New metronidazole 1,000 mg (2 x 500 mg) PO BID 14 days 56 tabs 0RF rifabutin 300 mg (2 x 150 mg) PO DAILY 14 days 28 caps 0RF A04.8 - Other specified bacterial intestinal infections, R10.10 - Upper abdominal pain, unspecified simethicone after meals 180 mg PO QID 30 days 120 caps 3RF Changed From omeprazole 20 mg PO BID 14 days 28 caps 0RF A04.8 - Other specified bacterial intestinal infections To omeprazole 20 mg PO BID 28 days 56 caps 0RF A04.8 - Other specified bacterial intestinal infections LABS: Laboratory Tests 03/24/24 11:06 H. pylori Breath Test Positive RAST PANEL SHOWS NO SIGNIFICANT FOOD ALLERGIES ULTRASOUND OF THE ABDOMEN TODAY'S VISIT She Had a rash from the amox, presented to the ER and it was stopped, will change to doxy/flagyl. She never received the rifabutin/flagyl, but was looking for it at [facility] and was sent to [facility] pharmacy - she will go get now. ROV 6 weeks, do consecutive therapy. Still not feeling well. This is to be expected considering we have not eradicated the H pylori. However, we still want to get the ultrasound to rule out any other potential comorbid contributions. 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 Review of Systems Const Denies fatigue, Denies fever(s), Denies night sweats, Denies poor appetite and Denies weight loss ENT Reports Normal hearing present, Denies dental pain, Denies dysphagia, Denies hearing loss, Denies mouth pain, Denies odynophagia, Denies throat swelling, Denies tongue swelling and Reports other (Dentition adequate) Card Reports no additional complaints Resp Reports no additional complaints GI Details: Reports abdominal pain, Denies melena, Denies bloating, Denies hematochezia, Denies constipation, Denies GI cramping, Denies dysphagia, Denies excessive flatus, Denies early satiety, Reports heartburn, Denies diarrhea, Reports nausea, Denies odynophagia, Denies vomiting and Denies hematemesis Skin/Breast Denies pruritus, Denies lesions, Reports rash and Denies jaundice Neuro Reports Normal hearing present and Denies Abnormal speech present Endo Denies fatigue Aller/Immun Denies throat swelling and Denies tongue swelling Physical Exam Vital Signs: Last Vital Signs Pulse 84 05/05/24 11:33 BP 111/69 05/05/24 11:33 BMI result Body Mass Index 28.9 Const General: cooperative, no acute distress, well developed and well groomed Nutritional Appearance: average body habitus and well nourished Orientation/consciousness: oriented to person, oriented to place and oriented to time Limitations: No language barrier HEENT Head: Yes normocephalic and Yes atraumatic Eyes General: appearance normal, both eyes and all related structures Pupils: Equal, round and reactive pupils present Neck Neck: Yes normal visual inspection and Yes no lymphadenopathy Thyroid: Thyroid normal Resp Effort & Inspection: normal respiratory effort and able to speak in complete sentences Auscultation: clear to auscultation bilaterally Cardio Rate: regular rate Rhythm: regular rhythm Heart sounds: Normal, physiologic split S2 sound present Peripheral pulses: radial pulses present and posterior tibial pulses present GI Inspection: No distended and No Abdominal panniculus present Palpation (GI): Soft to palpation, Tenderness to palpation present (GI) in the epigastrum, no guarding, not rigid and No hepatosplenomegaly present Percussion: Yes normal to percussion Auscultation: normal bowel sounds Rectal Exam - Female: deferred Skin General skin exam: no rashes or lesions noted, turgor normal, skin not dry, no jaundice, No spider nevi and no striae Rashes: no rashes Nails: normal Neuro General: oriented to person, oriented to place and oriented to time Cranial nerves: Yes Equal, round and reactive pupils present and Yes Normal hearing present Speech: No Abnormal speech present Extrem General: Yes normal to inspection, No clubbing, No cyanosis and No edema Psych Appearance: grossly normal and well kempt Mental Status: mental status grossly normal Speech and movement: Normal speech and movement present Affect: normal affect Attitude: cooperative Thought process: Normal thought process present and not confabulating Thought content: Normal thought content present Insight: Limited insight present (Psych) Judgement: Limited judgement present (Psych) Results Reviewed Results Reviewed: Laboratory Tests 03/24/24 11:06 H. pylori Breath Test Positive RAST PANEL SHOWS NO SIGNIFICANT FOOD ALLERGIES Assessment & Plan Assessment & Plan (1) H. pylori infection: Comment: drug resistant and pt allergic to pcn Code(s): A04.8 - Other specified bacterial intestinal infections Category: Medical (2) Upper abdominal pain: Comment: really more bloating Code(s): R10.10 - Upper abdominal pain, unspecified Category: Medical (3) Loose stools: Code(s): R19.5 - Other fecal abnormalities Category: Medical Plan She Had a rash from the amox, presented to the ER and it was stopped, will change to doxy/flagyl. She never received the rifabutin/flagyl, but was looking for it at [facility] and was sent to [facility] pharmacy - she will go get now. ROV 6 weeks, do consecutive therapy. Still not feeling well. This is to be expected considering we have not eradicated the H pylori. However, we still want to get the ultrasound to rule out any other potential comorbid contributions. Return office visit in 6 weeks Medications: New metronidazole 1,000 mg (2 x 500 mg) PO BID 56 tabs 0RF 14 days rifabutin 300 mg (2 x 150 mg) PO DAILY 28 caps 0RF 14 days A04.8 - Other specified bacterial intestinal infections Refilled omeprazole 20 mg PO BID 56 caps 3RF 28 days A04.8 - Other specified bacterial intestinal infections Coding Level of Care Code Est Pt Level 3 (01726) Diagnoses H. pylori infection A04.8 Upper abdominal pain R10.10 Loose stools R19.5
== END 2024-05-05 11:47 | disposition home or self-care (01) ==
PROVIDERS: Visit Provider Nurse Practitioner
DX: A04.8 Other specified bacterial intestinal infections (principal); R10.10 Upper abdominal pain, unspecified; R19.5 Other fecal abnormalities
CPT/HCPCS: 99213

== ENCOUNTER → 2024-05-05 11:27 | Outpatient (BNVA) | payer OTHER, SELFPAY | PROVIDERS: Visit Provider Nurse Practitioner | DX: R10.10 Upper abdominal pain, unspecified (principal); A04.8 Other specified bacterial intestinal infections; R19.5 Other fecal abnormalities | CPT/HCPCS: 99212 ==

== ENCOUNTER 2024-06-16 10:18 | Outpatient (AMB) | payer OTHER, SELFPAY ==
[2024-06-16 10:20] VITALS: BP 114/61; PULSE 80; BMI 28.5
--- NOTE | 2024-06-16 10:20 | MHC.OFFVIS ---
Vital Signs 06/16/24 10:20 Height 5 ft 3 in Weight 160 lb 14.999 oz BMI 28.5 BP 114/61 Blood Pressure Location Lt brachial Position Sitting Pulse 80 Intake Visit Reasons: 6 weeks follow up Intake Note: Patient in office today in follow up of abdominal pain. CC: Patient reports feeling the same, she continues to c/o abdominal pain after eating. Denies other GI concerns today. Tearoom Host/Hostess Required: No Allergies amoxicillin Allergy (Mild, Verified 06/16/24 10:23) Rash HPI HPI 6 weeks follow up: Details: Assessment & Plan (1) H. pylori infection: Code(s): A04.8 - Other specified bacterial intestinal infections (2) Upper abdominal pain: Comment: really more bloating Code(s): R10.10 - Upper abdominal pain, unspecified Plan She had a rash from the amoxicillin, presented to the ER and it was stopped, will change to doxy/flagyl. Unfortunately her symptoms are no better. This is likely because the H pylori repeated breath test was still positive. She did better with the doxy/Flagyl regimen when she took the amoxicillin she broke out in hives from head to toe and had a great deal of itching. Obviously this limits us since we can not use anything involving the amoxicillin regimen unless we send her to an multimedia technician and have her desensitized. For now we are going to try a course with rifabutin and Flagyl. She is advised to take a probiotic and I am going to also try prescribing Gas-X but she may need to buy this [id number]. This is to try to address the bloating although I suspect a large amount of this is due the H pylori. She received the senna and this is moving her bowels just as well as her [employer] purchase that was senna and cascara did. Return office visit in 7 weeks around February 09 she will be scheduled for an H pylori breath test and she is aware to stop the omeprazole prior to the test. Orders: Orders H Pylori Breath Test 02/10/24 Medications: New metronidazole 1,000 mg (2 x 500 mg) PO BID 14 days 56 tabs 0RF rifabutin 300 mg (2 x 150 mg) PO DAILY 14 days 28 caps 0RF A04.8 - Other specified bacterial intestinal infections, R10.10 - Upper abdominal pain, unspecified simethicone after meals 180 mg PO QID 30 days 120 caps 3RF Changed From omeprazole 20 mg PO BID 14 days 28 caps 0RF A04.8 - Other specified bacterial intestinal infections To omeprazole 20 mg PO BID 28 days 56 caps 0RF A04.8 - Other specified bacterial intestinal infections LABS: ULTRASOUND OF THE ABDOMEN Assessment & Plan (1) H. pylori infection: Code(s): A04.8 - Other specified bacterial intestinal infections (2) Upper abdominal pain: Comment: really more bloating Code(s): R10.10 - Upper abdominal pain, unspecified Plan She had a rash from the amoxicillin, presented to the ER and it was stopped, will change to doxy/flagyl. Unfortunately her symptoms are no better. This is likely because the H pylori repeated breath test was still positive. She did better with the doxy/Flagyl regimen when she took the amoxicillin she broke out in hives from head to toe and had a great deal of itching. Obviously this limits us since we can not use anything involving the amoxicillin regimen unless we send her to an multimedia technician and have her desensitized. For now we are going to try a course with rifabutin and Flagyl. She is advised to take a probiotic and I am going to also try prescribing Gas-X but she may need to buy this [id number]. This is to try to address the bloating although I suspect a large amount of this is due the H pylori. She received the [employer] and this is moving her bowels just as well as her [employer] purchase that was [employer] and [employer] did. Return office visit in 7 weeks around February 09 she will be scheduled for an H pylori breath test and she is aware to stop the omeprazole prior to the test. Orders: Orders H Pylori Breath Test 02/10/24 Medications: New metronidazole 1,000 mg (2 x 500 mg) PO BID 14 days 56 tabs 0RF rifabutin 300 mg (2 x 150 mg) PO DAILY 14 days 28 caps 0RF A04.8 - Other specified bacterial intestinal infections, R10.10 - Upper abdominal pain, unspecified simethicone after meals 180 mg PO QID 30 days 120 caps 3RF Changed From omeprazole 20 mg PO BID 14 days 28 caps 0RF A04.8 - Other specified bacterial intestinal infections To omeprazole 20 mg PO BID 28 days 56 caps 0RF A04.8 - Other specified bacterial intestinal infections LABS: Laboratory Tests 06/16/24 11:17 H. pylori Breath Test Positive ULTRASOUND OF THE ABDOMEN Not obtained TODAY'S VISIT She developed a rash from the amox, presented to the ER and it was stopped, will change to doxy/flagyl. Obviously, she is no better since we have not yet eradicated the microbe. Since she had a bad reaction I instruct her to do 1 antibiotic for 2 weeks then switched to the other so if there are any further problems will know which antibiotic she did not tolerate. However, most of the antibiotic regimens involve amoxicillin so we could be in a difficult position she does not tolerate the amoxicillin for the Flagyl. 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 Review of Systems Const Denies fatigue, Denies fever(s), Denies night sweats, Denies poor appetite and Denies weight loss ENT Reports Normal hearing present, Denies dental pain, Denies dysphagia, Denies hearing loss, Denies mouth pain, Denies odynophagia, Denies throat swelling, Denies tongue swelling and Reports other (Dentition adequate) Card Reports no additional complaints Resp Reports no additional complaints GI Details: Reports abdominal pain, Denies melena, Reports bloating, Denies hematochezia, Denies constipation, Denies GI cramping, Denies dysphagia, Denies excessive flatus, Denies early satiety, Reports heartburn, Denies diarrhea, Denies nausea, Denies odynophagia, Denies vomiting and Denies hematemesis Skin/Breast Denies pruritus, Denies lesions, Denies rash and Denies jaundice Neuro Reports Normal hearing present and Denies Abnormal speech present Endo Denies fatigue Aller/Immun Denies throat swelling and Denies tongue swelling Physical Exam Vital Signs: Last Vital Signs Pulse 80 06/16/24 10:20 BP 114/61 06/16/24 10:20 BMI result Body Mass Index 28.5 Const General: cooperative, no acute distress, well developed and well groomed Nutritional Appearance: average body habitus and well nourished Orientation/consciousness: oriented to person, oriented to place and oriented to time Limitations: No language barrier HEENT Head: Yes normocephalic and Yes atraumatic Eyes General: appearance normal, both eyes and all related structures Pupils: Equal, round and reactive pupils present Neck Neck: Yes normal visual inspection and Yes no lymphadenopathy Thyroid: Thyroid normal Resp Effort & Inspection: normal respiratory effort and able to speak in complete sentences Auscultation: clear to auscultation bilaterally Cardio Rate: regular rate Rhythm: regular rhythm Heart sounds: Normal, physiologic split S2 sound present Peripheral pulses: radial pulses present and posterior tibial pulses present GI Inspection: No distended and No Abdominal panniculus present Palpation (GI): Soft to palpation, nontender, no guarding, not rigid and No hepatosplenomegaly present Percussion: Yes normal to percussion Auscultation: normal bowel sounds Rectal Exam - Female: deferred Skin General skin exam: no rashes or lesions noted, turgor normal, skin not dry, no jaundice, No spider nevi and no striae Rashes: no rashes Nails: normal Neuro General: oriented to person, oriented to place and oriented to time Cranial nerves: Yes Equal, round and reactive pupils present and Yes Normal hearing present Speech: No Abnormal speech present Extrem General: Yes normal to inspection, No clubbing, No cyanosis and No edema Psych Appearance: grossly normal and well kempt Mental Status: mental status grossly normal Speech and movement: Normal speech and movement present Affect: normal affect Attitude: cooperative Thought process: Normal thought process present and not confabulating Thought content: Normal thought content present Insight: Limited insight present (Psych) Judgement: Limited judgement present (Psych) Assessment & Plan Assessment & Plan (1) H. pylori infection: Comment: drug resistant and pt allergic to pcn Code(s): A04.8 - Other specified bacterial intestinal infections Category: Medical Plan She developed a rash from the amox, presented to the ER and it was stopped, will change to doxy/flagyl. Obviously, she is no better since we have not yet eradicated the microbe. Since she had a bad reaction I instruct her to do 1 antibiotic for 2 weeks then switched to the other so if there are any further problems will know which antibiotic she did not tolerate. However, most of the antibiotic regimens involve amoxicillin so we could be in a difficult position she does not tolerate the amoxicillin for the Flagyl. Return office visit in 6-8 weeks Orders: Orders H Pylori Breath Test 06/20/24 A04.8 - Other specified bacterial intestinal infections Coding Level of Care Code Est Pt Level 3 (12675) Diagnoses H. pylori infection A04.8
== END 2024-06-16 11:18 | disposition home or self-care (01) ==
PROVIDERS: Visit Provider Nurse Practitioner
DX: A04.8 Other specified bacterial intestinal infections (principal)
CPT/HCPCS: 99213

== ENCOUNTER → 2024-06-16 10:18 | Outpatient (BNVA) | payer OTHER, SELFPAY | PROVIDERS: Visit Provider Nurse Practitioner | DX: R10.10 Upper abdominal pain, unspecified (principal); A04.8 Other specified bacterial intestinal infections | CPT/HCPCS: 99212 ==

== ENCOUNTER 2024-06-16 11:17 | Outpatient (REF) | payer OTHER, SELFPAY ==
[2024-06-21 13:21] LABS: H Pylori Breath Test Positive (Negative)
== END 2024-06-16 11:18 | disposition home or self-care (01) ==
LOC: HO.LNP 11:17
PROVIDERS: Visit Provider Nurse Practitioner
DX: A04.8 Other specified bacterial intestinal infections (principal)
CPT/HCPCS: 83013

== ENCOUNTER 2024-07-28 10:28 | Outpatient (AMB) | payer OTHER, SELFPAY ==
--- NOTE | 2024-07-28 10:32 | MHC.OFFVIS ---
Vital Signs 07/28/24 10:42 Height 5 ft 3 in Weight 158 lb 4.67 oz BMI 28.0 BP 129/75 Blood Pressure Location Lt brachial Position Sitting Pulse 83 Intake Visit Reasons: 6 week follow up Intake Note: Patient in office today in follow up of H pylori. CC: Patient reports that she continues feeling the same and having abd pain after eating. Allergies amoxicillin Allergy (Mild, Verified 09/13/24 13:32) Rash HPI HPI 6 week follow up: Details: Assessment & Plan (1) H. pylori infection: Code(s): A04.8 - Other specified bacterial intestinal infections (2) Upper abdominal pain: Comment: really more bloating Code(s): R10.10 - Upper abdominal pain, unspecified Plan She had a rash from the amoxicillin, presented to the ER and it was stopped, will change to doxy/flagyl. Unfortunately her symptoms are no better. This is likely because the H pylori repeated breath test was still positive. She did better with the doxy/Flagyl regimen when she took the amoxicillin she broke out in hives from head to toe and had a great deal of itching. Obviously this limits us since we can not use anything involving the amoxicillin regimen unless we send her to an account manager education and have her desensitized. For now we are going to try a course with rifabutin and Flagyl. She is advised to take a probiotic and I am going to also try prescribing Gas-X but she may need to buy this [id number]. This is to try to address the bloating although I suspect a large amount of this is due the H pylori. She received the [facility] and this is moving her bowels just as well as her [employer] purchase [facility] [employer] [facility]. Return office visit in 7 weeks around February 09 she will be scheduled for an H pylori breath test and she is aware to stop the omeprazole prior to the test. Orders: Orders H Pylori Breath Test 02/10/24 Medications: New metronidazole 1,000 mg (2 x 500 mg) PO BID 14 days 56 tabs 0RF rifabutin 300 mg (2 x 150 mg) PO DAILY 14 days 28 caps 0RF A04.8 - Other specified bacterial intestinal infections, R10.10 - Upper abdominal pain, unspecified simethicone after meals 180 mg PO QID 30 days 120 caps 3RF Changed From omeprazole 20 mg PO BID 14 days 28 caps 0RF A04.8 - Other specified bacterial intestinal infections To omeprazole 20 mg PO BID 28 days 56 caps 0RF A04.8 - Other specified bacterial intestinal infections LABS: Laboratory Tests 06/16/24 11:17 H. pylori Breath Test Positive ULTRASOUND OF THE ABDOMEN CORRESPONDENCE On 02/14/24 @ 09:25 Megan Parada Wrote To Dionne I received approval for the generic of Mycobutin and it was scanned into chart. I spoke w/ [facility] as this is what they were waiting for, script was resent as well as the Metronidazole since patient is already coming in to pick it up. patient is aware and will come get medication tomorrow. I advised her to not start Flagyl until she is sure she has the Rifabutin in hand. patient verbalized understanding. just sending as fyi follow up rescheduled to 03/24/24 at 10am On 02/11/24 @ 09:56 Megan Parada Wrote To Truong (2) Unfortunately it is the brand name that requires no PA and is currently on backorder with no date of restock. I submitted PA for generic. On 02/10/24 @ 16:45 Wong Amin Wrote To Truong (2) I called the patient and told her to stop taking Metronidazole since she did not have the Rifabutin due to supply issues at [facility]. [facility] pharmacy said they will try to order rifabutin for tomorrow. New scripts sent to [facility] pharmacy. I advised for the patient to call tomorrow to check if they are available. Once available, patient will restart course of flagyl, rifabutin, and omeprazole. Appointments on 02/16 and 03/03 were cancelled. New follow-up appointment scheduled with January on 03/21 (assuming patient can get the scripts tomorrow). Patient will also need the H Pylori breath test rescheduled. Patient agreed with the plan and was advised to call the office with any questions. On 02/10/24 @ 14:32 Karen Truong Wrote To Clinton Jackson DionneKaren removed from item. TODAY'S VISIT She had a rash from the amox, presented to the ER and it was stopped, will change to doxy/flagyl. She changed her diet completely and is now following Paleo diet consisting of eggs and meats. She is not really doing any vegetables. This has helped with her bloating but it has not helped with the heartburn which continues to be severe after eating. She also has a lot of belching. She continues on her omeprazole 20 mg twice a day and her simethicone. I think this is from the unresolved H pylori. She never received the last round of antibiotics because we sent to the wrong pharmacy so I have redirected this from [facility] to [facility] and again will try rifabutin Flagyl therapy. 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 Review of Systems Const Denies fatigue, Denies fever(s), Denies night sweats, Denies poor appetite and Denies weight loss ENT Reports Normal hearing present, Denies dental pain, Denies dysphagia, Denies hearing loss, Denies mouth pain, Denies odynophagia, Denies throat swelling, Denies tongue swelling and Reports other (Dentition adequate) Card Reports no additional complaints Resp Reports no additional complaints GI Details: Denies abdominal pain, Denies melena, Reports bloating, Denies hematochezia, Denies constipation, Denies GI cramping, Denies dysphagia, Denies excessive flatus, Denies early satiety, Reports heartburn, Denies diarrhea, Denies nausea, Denies odynophagia, Denies vomiting and Denies hematemesis Skin/Breast Denies pruritus, Denies lesions, Denies rash and Denies jaundice Neuro Reports Normal hearing present and Denies Abnormal speech present Endo Denies fatigue Aller/Immun Denies throat swelling and Denies tongue swelling Physical Exam Vital Signs: Last Vital Signs Pulse 83 07/28/24 10:42 BP 129/75 07/28/24 10:42 BMI result Body Mass Index 28.0 Const General: cooperative, no acute distress, well developed and well groomed Nutritional Appearance: average body habitus and well nourished Orientation/consciousness: oriented to person, oriented to place and oriented to time Limitations: No language barrier HEENT Head: Yes normocephalic and Yes atraumatic Eyes General: appearance normal, both eyes and all related structures Pupils: Equal, round and reactive pupils present Neck Neck: Yes normal visual inspection and Yes no lymphadenopathy Thyroid: Thyroid normal Resp Effort & Inspection: normal respiratory effort and able to speak in complete sentences Auscultation: clear to auscultation bilaterally Cardio Rate: regular rate Rhythm: regular rhythm Heart sounds: Normal, physiologic split S2 sound present Peripheral pulses: radial pulses present and posterior tibial pulses present GI Inspection: No distended and No Abdominal panniculus present Palpation (GI): Soft to palpation, nontender, no guarding, not rigid and No hepatosplenomegaly present Percussion: Yes normal to percussion Auscultation: normal bowel sounds Rectal Exam - Female: deferred Skin General skin exam: no rashes or lesions noted, turgor normal, skin not dry, no jaundice, No spider nevi and no striae Rashes: no rashes Nails: normal Neuro General: oriented to person, oriented to place and oriented to time Cranial nerves: Yes Equal, round and reactive pupils present and Yes Normal hearing present Speech: No Abnormal speech present Extrem General: Yes normal to inspection, No clubbing, No cyanosis and No edema Psych Appearance: grossly normal and well kempt Mental Status: mental status grossly normal Speech and movement: Normal speech and movement present Affect: normal affect Attitude: cooperative Thought process: Normal thought process present and not confabulating Thought content: Normal thought content present Insight: Limited insight present (Psych) Judgement: Limited judgement present (Psych) Assessment & Plan Assessment & Plan (1) H. pylori infection: Comment: drug resistant and pt allergic to pcn Code(s): A04.8 - Other specified bacterial intestinal infections Category: Medical (2) Upper abdominal pain: Comment: really more bloating Code(s): R10.10 - Upper abdominal pain, unspecified Category: Medical (3) GERD (gastroesophageal reflux disease): Code(s): K21.9 - Gastro-esophageal reflux disease without esophagitis Category: Medical Plan She had a rash from the amox, presented to the ER and it was stopped, will change to doxy/flagyl. She changed her diet completely and is now following Paleo diet consisting of eggs and meats. She is not really doing any vegetables. This has helped with her bloating but it has not helped with the heartburn which continues to be severe after eating. She also has a lot of belching. She continues on her omeprazole 20 mg twice a day and her simethicone. I think this is from the unresolved H pylori. She never received the last round of antibiotics because we sent to the wrong pharmacy so I have redirected this from [facility] to [facility] and again will try rifabutin Flagyl therapy. Return office visit in 6 weeks Medications: New rifabutin 300 mg (2 x 150 mg) PO DAILY 28 caps 0RF 14 days A04.8 - Other specified bacterial intestinal infections metronidazole 1,000 mg (2 x 500 mg) PO BID 56 tabs 0RF 14 days rifabutin 300 mg (2 x 150 mg) PO DAILY 28 caps 0RF 14 days A04.8 - Other specified bacterial intestinal infections bismuth subsalicylate (Bismuth) 2 tabs PO QID 112 tabs 0RF 14 days metronidazole 1,000 mg (2 x 500 mg) PO BID 56 tabs 0RF 14 days bismuth subsalicylate (Bismuth) 2 tabs PO QID 112 tabs 0RF 14 days Refilled omeprazole 20 mg PO BID 56 caps 3RF 28 days A04.8 - Other specified bacterial intestinal infections omeprazole 20 mg PO BID 56 caps 3RF 28 days A04.8 - Other specified bacterial intestinal infections Coding Level of Care Code Est Pt Level 3 (50890) Diagnoses H. pylori infection A04.8 Upper abdominal pain R10.10 GERD (gastroesophageal reflux disease) K21.9
[2024-07-28 10:42] VITALS: BP 129/75; PULSE 83; BMI 28.0
== END 2024-07-28 11:06 | disposition home or self-care (01) ==
PROVIDERS: Visit Provider Nurse Practitioner
DX: A04.8 Other specified bacterial intestinal infections (principal); R10.10 Upper abdominal pain, unspecified; K21.9 Gastro-esophageal reflux disease without esophagitis
CPT/HCPCS: 99213

== ENCOUNTER → 2024-07-28 10:28 | Outpatient (BNVA) | payer OTHER, SELFPAY | PROVIDERS: Visit Provider Nurse Practitioner | DX: K21.9 Gastro-esophageal reflux disease without esophagitis (principal); R10.10 Upper abdominal pain, unspecified; A04.8 Other specified bacterial intestinal infections | CPT/HCPCS: 99212 ==

== ENCOUNTER 2024-09-13 12:51 | Outpatient (REF) | payer OTHER, SELFPAY ==
[2024-09-14 08:54] LABS: H Pylori Breath Test Positive (Negative)
== END 2024-09-13 12:52 | disposition home or self-care (01) ==
LOC: HO.LNP 12:51
PROVIDERS: Visit Provider Nurse Practitioner
DX: K21.9 Gastro-esophageal reflux disease without esophagitis (principal); A04.8 Other specified bacterial intestinal infections; R10.10 Upper abdominal pain, unspecified
CPT/HCPCS: 83013; 99212

== ENCOUNTER 2024-09-13 12:51 | Outpatient (AMB) | payer OTHER, SELFPAY ==
[2024-09-13 13:30] VITALS: BP 112/68; PULSE 76; O2SAT 96; BMI 28.0
--- NOTE | 2024-09-13 13:30 | MHC.OFFVIS ---
Vital Signs 09/13/24 13:30 Height 5 ft 3 in Weight 157 lb 13.616 oz BMI 28.0 BP 112/68 Blood Pressure Location Lt brachial Position Sitting Pulse 76 Pulse Source Pulse Oximeter Pulse Oximetry (%) 96 Oxygen Delivery Method Room Air Intake Visit Reasons: 6 week FUV. Intake Note: PRESCRIPTIONS LAST GENERATED metronidazole 500 mg tablet?1,000 mg (2 x 500 mg) PO BID 56 tabs 0RF 14 days Truong,07/28/24 11:00 (Transmitted) bismuth subsalicylate 262 mg chewable tablet?(Bismuth)?2 tabs PO QID 112 tabs 0RF 14 days Truong,07/28/24 11:00 (Transmitted) omeprazole 20 mg capsule,delayed release?20 mg PO BID 56 caps 3RF 28 days Truong,07/28/24 11:00 (Transmitted) Pt has completed these courses of medications. Relevant Flags or Indicators ? Requires Crop Roller? Lu Allen presents in office today for a scheduled 6 week FUV. CC; No recent labs, diagnostics ? Relevant GI Sx as reported per pt? Reflux ? Hx of any recent surgeries? None Crop Roller Required: No Allergies amoxicillin Allergy (Mild, Verified 09/13/24 13:32) Rash HPI HPI 6 week FUV.: Details: Assessment & Plan (1) H. pylori infection: Code(s): A04.8 - Other specified bacterial intestinal infections (2) Upper abdominal pain: Comment: really more bloating Code(s): R10.10 - Upper abdominal pain, unspecified Plan She had a rash from the amoxicillin, presented to the ER and it was stopped, will change to doxy/flagyl. Unfortunately her symptoms are no better. This is likely because the H pylori repeated breath test was still positive. She did better with the doxy/Flagyl regimen when she took the amoxicillin she broke out in hives from head to toe and had a great deal of itching. Obviously this limits us since we can not use anything involving the amoxicillin regimen unless we send her to an pipe smoker machine operator and have her desensitized. For now we are going to try a course with rifabutin and Flagyl. She is advised to take a probiotic and I am going to also try prescribing Gas-X but she may need to buy this [id number]. This is to try to address the bloating although I suspect a large amount of this is due the H pylori. She received the senna and this is moving her bowels just as well as her [employer] purchase that was senna and brittany did. Return office visit in 7 weeks around February 09 she will be scheduled for an H pylori breath test and she is aware to stop the omeprazole prior to the test. Orders: Orders H Pylori Breath Test 02/10/24 Medications: New metronidazole 1,000 mg (2 x 500 mg) PO BID 14 days 56 tabs 0RF rifabutin 300 mg (2 x 150 mg) PO DAILY 14 days 28 caps 0RF A04.8 - Other specified bacterial intestinal infections, R10.10 - Upper abdominal pain, unspecified simethicone after meals 180 mg PO QID 30 days 120 caps 3RF Changed From omeprazole 20 mg PO BID 14 days 28 caps 0RF A04.8 - Other specified bacterial intestinal infections To omeprazole 20 mg PO BID 28 days 56 caps 0RF A04.8 - Other specified bacterial intestinal infections TODAY'S VISIT sHE Had a rash from jon amox, presented to the ER and it was stopped, will change to doxy/flagyl. She failed doxy/flagyl so rifabutin/flagyl was sent Obviously her H pylori breath tests have continued to be positive. She completed the amoxicillin/rifabutin about 3 weeks ago. Unfortunately her symptoms are still unchanged. We will repeat the H pylori breath test as I do not want to assume that it is unresolved H pylori until I can confirm it. In the meantime we will restart her pantoprazole twice a day to give her some symptom relief. 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 Review of Systems Const Denies fatigue, Denies fever(s), Denies night sweats, Denies poor appetite and Denies weight loss ENT Reports Normal hearing present, Denies dental pain, Denies dysphagia, Denies hearing loss, Denies mouth pain, Denies odynophagia, Denies throat swelling, Denies tongue swelling and Reports other (Dentition adequate) Card Reports no additional complaints Resp Reports no additional complaints GI Details: Denies abdominal pain, Denies melena, Reports bloating, Denies hematochezia, Denies constipation, Denies GI cramping, Denies dysphagia, Denies excessive flatus, Denies early satiety, Reports heartburn, Denies diarrhea, Denies nausea, Denies odynophagia, Denies vomiting and Denies hematemesis Skin/Breast Denies pruritus, Denies lesions, Denies rash and Denies jaundice Neuro Reports Normal hearing present and Denies Abnormal speech present Endo Denies fatigue Aller/Immun Denies throat swelling and Denies tongue swelling Physical Exam Vital Signs: Last Vital Signs Pulse 76 09/13/24 13:30 BP 112/68 09/13/24 13:30 Pulse Ox 96 09/13/24 13:30 Oxygen Delivery Method Room Air 09/13/24 13:30 BMI result Body Mass Index 28.0 Const General: cooperative, no acute distress, well developed and well groomed Nutritional Appearance: average body habitus and well nourished Orientation/consciousness: oriented to person, oriented to place and oriented to time Limitations: No language barrier HEENT Head: Yes normocephalic and Yes atraumatic Eyes General: appearance normal, both eyes and all related structures Pupils: Equal, round and reactive pupils present Neck Neck: Yes normal visual inspection and Yes no lymphadenopathy Thyroid: Thyroid normal Resp Effort & Inspection: normal respiratory effort and able to speak in complete sentences Auscultation: clear to auscultation bilaterally Cardio Rate: regular rate Rhythm: regular rhythm Heart sounds: Normal, physiologic split S2 sound present Peripheral pulses: radial pulses present and posterior tibial pulses present GI Inspection: No distended and No Abdominal panniculus present Palpation (GI): Soft to palpation, nontender, no guarding, not rigid and No hepatosplenomegaly present Percussion: Yes normal to percussion Auscultation: normal bowel sounds Rectal Exam - Female: deferred Skin General skin exam: no rashes or lesions noted, turgor normal, skin not dry, no jaundice, No spider nevi and no striae Rashes: no rashes Nails: normal Neuro General: oriented to person, oriented to place and oriented to time Cranial nerves: Yes Equal, round and reactive pupils present and Yes Normal hearing present Speech: No Abnormal speech present Extrem General: Yes normal to inspection, No clubbing, No cyanosis and No edema Psych Appearance: grossly normal and well kempt Mental Status: mental status grossly normal Speech and movement: Normal speech and movement present Affect: normal affect Attitude: cooperative Thought process: Normal thought process present and not confabulating Thought content: Normal thought content present Insight: Limited insight present (Psych) Judgement: Limited judgement present (Psych) Assessment & Plan Assessment & Plan (1) GERD (gastroesophageal reflux disease): Code(s): K21.9 - Gastro-esophageal reflux disease without esophagitis Category: Medical (2) H. pylori infection: Comment: drug resistant and pt allergic to pcn Code(s): A04.8 - Other specified bacterial intestinal infections Category: Medical (3) Upper abdominal pain: Comment: really more bloating Code(s): R10.10 - Upper abdominal pain, unspecified Category: Medical Plan sHE Had a rash from jon amox, presented to the ER and it was stopped, will change to doxy/flagyl. She failed doxy/flagyl so rifabutin/flagyl was sent Obviously her H pylori breath tests have continued to be positive. She completed the amoxicillin/rifabutin about 3 weeks ago. Unfortunately her symptoms are still unchanged. We will repeat the H pylori breath test as I do not want to assume that it is unresolved H pylori until I can confirm it. In the meantime we will restart her pantoprazole twice a day to give her some symptom relief. We discussed possible scenarios about how to manage the H pylori if it is not resolved. One scenario would be simply to control the symptoms with medications such as a PPI and possibly Carafate. Another possibility would be to send her to an pipe smoker machine operator to be desensitized so that we could re-attempt to treat her with an amoxicillin base therapy. Otherwise we would have to wait until some new antibiotic is indented with different efficacy against H pylori. Return office visit in 8 weeks Orders: Orders H Pylori Breath Test Today Medications: New pantoprazole (Protonix) 40 mg PO BID 120 tabs 6RF 30 days A04.8 - Other specified bacterial intestinal infections, R10.10 - Upper abdominal pain, unspecified Discontinued rifabutin Discontinued Reason: Doctor's Order 300 mg (2 x 150 mg) PO DAILY 14 days 28 caps 0RF A04.8 - Other specified bacterial intestinal infections Coding Level of Care Code Est Pt Level 3 (88784) Diagnoses GERD (gastroesophageal reflux disease) K21.9 H. pylori infection A04.8 Upper abdominal pain R10.10
== END 2024-09-13 14:21 | disposition home or self-care (01) ==
PROVIDERS: Visit Provider Nurse Practitioner
DX: K21.9 Gastro-esophageal reflux disease without esophagitis (principal); A04.8 Other specified bacterial intestinal infections; R10.10 Upper abdominal pain, unspecified
CPT/HCPCS: 99213